=== PATIENT | female | born 1925 ===

== ENCOUNTER 2016-07-16 10:06 | Inpatient (IN) | payer MEDICARE ==
--- NOTE | 2016-07-16 11:15 | ED PDOC ---
HPI: General Adult Time Seen by Provider: 07/16/16 10:28 Chief Complaint (Nursing): Trauma Chief Complaint (Provider): mechanical fall History Per: Patient History/Exam Limitations: no limitations Additional Complaint(s): 89yo female comes to the ED complaining of left knee, forehead and right shoulder pain after mechanical fall earlier today. States she walked down 2 steps when she fell, landing on the left knee, forehead and left shoulder, then rolling to the right side. Complaining of a headache where she has bruise but denies any other change in vision, pain with eye movement, jaw pain, neck pain, chest pain, abdominal pain, hip pain, back pain. Also complains of left knee pain with range of motion. NIHSS Stroke Scale - Date/Time Evaluation Performed Date Performed: 07/16/16 Time Performed: 10:30 - How Severe is the Stroke Level of Consciousness: 0=Alert LOC to Questions: 0=Both comments correct LOC to commands: 0=Obeys both correctly Best Gaze: 0=Normal Visual: 0=No visual loss Facial: 0=Normal Motor Arm - Left: 0=No drift Motor Arm - Right: 0=No drift Motor Leg - Left: 0=No drift Motor Leg - Right: 0=No drift Limb Ataxia: 0=Absent Sensory: 0=Normal Best Language: 0=No aphasia Dysarthia: 0=Normal articulation Extinction & Inattention (Neglect): 0=Normal, no object Score: 0 Past Medical History Reviewed: Historical Data, Nursing Documentation, Vital Signs Vital Signs: Last Vital Signs Temp 98.6 F 07/16/16 10:30 Pulse 78 07/16/16 15:27 Resp 16 07/16/16 15:27 BP 116/68 07/16/16 15:27 Pulse Ox 98 07/16/16 15:27 - Medical History PMH: HTN, Hypercholesterolemia Other PMH: elevated blood sugar but not taking meds - Surgical History Surgical History: No Surg Hx - Family History Family History: States: Unknown Family Hx - Social History Drugs: Denies - Home Medications Home Medications: Ambulatory Orders Medication Instructions Recorded Carvedilol [Coreg] 12.5 mg PO DAILY 07/16/16 Levothyroxine [Synthroid] 75 mcg PO DAILY 07/16/16 Raloxifene [Evista] 60 mg PO DAILY 07/16/16 Simvastatin [Simvastatin] 10 mg PO HS 07/16/16 amLODIPine [Norvasc] 5 mg PO DAILY 07/16/16 cycloSPORINE [Restasis] 1 drop EACHEYE Q12H 07/16/16 metFORMIN [glucOPHAGE] 500 mg PO DAILY 07/16/16 - Allergies Allergies/Adverse Reactions: Allergies Allergy/AdvReac Type Severity Reaction Status Date / Time No Known Allergies Allergy Verified 07/16/16 10:30 Review of Systems ROS Statement: Except As Marked, All Systems Reviewed And Found Negative Musculoskeletal: Positive for: Shoulder Pain, Other (knee pain). Negative for: Neck Pain, Back Pain Neurological: Positive for: Headache Physical Exam - Reviewed Nursing Documentation Reviewed: Yes Vital Signs Reviewed: Yes - Physical Exam Appears: Positive for: Well, Non-toxic, No Acute Distress Head Exam: Positive for: NORMAL INSPECTION, NORMOCEPHALIC. Negative for: ATRAUMATIC (+hematoma to right forehead) Skin: Positive for: Normal Color, Warm, Dry Eye Exam: Positive for: EOMI, PERRL ENT: Positive for: Normal ENT Inspection Neck: Positive for: Normal, Painless ROM Cardiovascular/Chest: Positive for: Regular Rate, Rhythm Respiratory: Positive for: Normal Breath Sounds. Negative for: Rales, Rhonchi, Wheezing Pulses-Dorsalis Pedis (L): 2+ Pulses-Dorsalis Pedis (R): 2+ Pulses-Radial (L): 2+ Pulses-Radial (R): 2+ Gastrointestinal/Abdominal: Positive for: Soft. Negative for: Tenderness Back: Positive for: Normal Inspection. Negative for: Vertebral Tenderness Extremity: Positive for: Normal ROM (except for left knee and right shoulder ), Tenderness (right shoulder, left knee ), Capillary Refill (normal ), Swelling ( left knee, right forearm), Other (hematoma to left knee with moderate swelling to anterior portion with decreased ROM due to swelling. sensation intact. capillary refill normal. +lateral right shoulder but no obvious deformity. 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 Negative for: Motor/Sensory Deficits, Aphasia, Facial Droop - Laboratory Results Result Diagrams: 07/16/16 13:30 07/16/16 13:30 - ECG O2 Sat by Pulse Oximetry: 99 (RA) Pulse Ox Interpretation: Normal Medical Decision Making Medical Decision Making: Impression rule out fracture plan: -ct head w/o -xr left knee & right shoulder -tylenol -reassess 1311: CT Head w/o Impression: Approximately 1.6cm intraparenchymal hemorrhage or hemorrhagic lesion/mass at the inferior aspect of the right thalamus without evidence of significant mass effect or midline shift. Moderate atrophy. [address] Guardado neurosurgery who states patient does not need to be transferred. Recommends admitting the patient and requests neurology consult. Patient reassessed, now has a hematoma on the right lateral forearm. No obvious deformity. XR Left Knee significant for fractured patella. XR Right shoulder is negative. [address] Redding neurology, who suspects patient may have had a seizure which caused her to fall. Requests Keppra 500mg BID. Requests MRI with gadolinium. [address] Roldan who accepts patient for admission under medical service. Will put in for Q4 neuro checks. MRI was ordered. Keppra was ordered. RN will call him when patient gets to the floor. Dr. Bird will consult as orthopedist. Case discussed with Dr. Bird, in at bedside. he placed compression dressing on leg, knee immobilizer replaced requests MRI right shoulder, elbow right x ray, and knee CT. he discussed with patient and son at beside will need operation once stable. Disposition - Clinical Impression Clinical Impression: Intraparenchymal hemorrhage of brain, Shoulder pain, Patella fracture - Patient ED Disposition Is Patient to be Admitted: Yes Counseled Patient/Family Regarding: Studies Performed, Diagnosis - Disposition Disposition Time: 15:57 Condition: STABLE - Pt Status Changed To: Hospital Disposition Of: Inpatient - Admit Certification Admit to Inpatient:: After my assessment, the patient will require hospitalization for at least two midnights. This is because of the severity of symptoms shown, intensity of services needed, and/or the medical risk in this patient being treated as an outpatient. - POA Present On Arrival: None Additional Comments - Additional Comments Additional Comments: Scribe Attestation: Documented by Anil Garay acting as a scribe for Lanre Medel PA-C Provider Scribe Attestation: All medical record entries made by the Scribe were at my direction and personally dictated by me. I have reviewed the chart and agree that the record accurately reflects my personal performance of the history, physical exam, medical decision making, and the department course for this patient. I have also personally directed, reviewed, and agree with the discharge instructions and disposition.
--- NOTE | 2016-07-16 12:26 | CT ---
PROCEDURE: CT HEAD WITHOUT CONTRAST. HISTORY: fall, pain, right COMPARISON: None available. TECHNIQUE: Axial computed tomography images were obtained through the head/brain without intravenous contrast. Radiation dose: Total exam DLP = 769.5 mGy-cm. FINDINGS: HEMORRHAGE: There is focal round approximately 1.6 centimeter intraparenchymal hemorrhage versus hemorrhagic lesion at the inferior aspect of the right thalamus surrounding with trace edema. BRAIN: No evidence of significant mass effect or midline shift. Moderate atrophy. VENTRICLES: Unremarkable. No hydrocephalus. CALVARIUM: Unremarkable. PARANASAL SINUSES: Unremarkable as visualized. No significant inflammatory changes. MASTOID AIR CELLS: Unremarkable as visualized. No inflammatory changes. OTHER FINDINGS: None. IMPRESSION: Approximately 1.6 centimeter intraparenchymal hemorrhage or hemorrhagic lesion/mass at the inferior aspect of the right thalamus without evidence of significant mass effect or midline shift. Moderate atrophy. Right frontal scalp soft tissue swelling.
[2016-07-16 13:47] LABS: BASO % 0.3 % (0.0-2.0); EOS # 0.1 K/uL (0.0-0.7); EOS % 0.5 % (0.0-4.0); HEMATOCRIT 38.7 % (34.0-47.0); LYMPH # 2.5 K/uL (1.0-4.3); LYMPH % 24.2 % (20.0-40.0); MEAN CORPUSCULAR HEMOGLOBIN 28.8 pg (27.0-31.0); MEAN CORPUSCULAR HGB CONC 33.1 g/dL (33.0-37.0); MEAN PLATELET VOLUME 9.4 fl (7.2-11.7); MONO # 0.5 K/uL (0.0-0.8); MONO % 4.7 % (0.0-10.0); NEUT # 7.2 K/uL (1.8-7.0); NEUT % 70.3 % (50.0-75.0); NRBC % 0.1 % (0.0-0.0); RED CELL DISTRIBUTION WIDTH 14.1 % (11.5-14.5); WHITE BLOOD COUNT 10.3 K/uL (4.8-10.8)
--- NOTE | 2016-07-16 13:56 | RAD ---
PROCEDURE: Left Knee Radiographs. HISTORY: Pain. COMPARISON: None. FINDINGS: BONES: Transverse markedly displaced mid patellar fracture. There is roughly 2.3 cm displacement of the fracture fragments. The patellar fracture is likely comminuted, best seen on the sunrise view. There is no other fracture identified. JOINTS: Medial and lateral compartments are preserved. JOINT EFFUSION: None. OTHER FINDINGS: None. IMPRESSION: Displaced patellar fracture, likely comminuted.
--- NOTE | 2016-07-16 13:58 | RAD ---
PROCEDURE: Radiographs of the Right Shoulder HISTORY: fall, pain COMPARISON: No prior. FINDINGS: BONES: Normal. No fracture. JOINTS: No dislocation. Glenohumeral articulation grossly preserved. Acromioclavicular degenerative arthritis noted. SOFT TISSUES: Normal. OTHER FINDINGS: None. IMPRESSION: No acute fracture.
[2016-07-16 14:01] LABS: ALB/GLOB RATIO 1.2 (1.0-2.1); ALKALINE PHOSPHATASE 52 U/L (38-126); ALT/SGPT 32 U/L (9-52); AST/SGOT 54 U/L (14-36); BLOOD UREA NITROGEN 14 mg/dl (7-17); CALCIUM 9.4 mg/dL (8.4-10.2); CARBON DIOXIDE 25 mmol/L (22-30); CHLORIDE 103 mmol/L (98-107); GFR AFRICAN-AMERICAN > 60; GLUCOSE,RANDOM 126 mg/dL (65-105); PARTIAL THROMBOPLASTIN TIME 22.1 SECONDS (23.3-32.5); POTASSIUM 4.3 MMOL/L (3.6-5.0); SODIUM 137 mmol/l (132-148); TOTAL PROTEIN 7.5 G/DL (6.3-8.2)
--- NOTE | 2016-07-16 15:56 | CT ---
PROCEDURE: CT of the left knee without contrast HISTORY: fall, pain COMPARISON: Comparison is made to the previous same-day x-ray of the left knee TECHNIQUE: Axial and reformatted coronal and sagittal CT images of the left knee were obtained without IV contrast administration. 3D reconstructed/ reformatted images of the left knee were also obtained. FINDINGS: This study demonstrate acute comminuted and displaced fracture at the mid portion of the left patella with retraction of the proximal portion. . There are also comminuted nondisplaced fracture at the distal portion of the left patella laterally. There are small bony fragments seen. No evidence of other acute fracture at the left knee. Posttraumatic changes and subcutaneous edema and stranding seen at the anterior aspect of the left knee particularly around the left patella. There is a trace left knee joint effusion. The Herbert fat is clear. IMPRESSION: Acute comminuted and displaced fracture at the midshaft of the left patella with retraction of the proximal portion attached to the quadriceps tendon. Comminuted nondisplaced fractures at the distal portion of the left patella. Post traumatic soft tissue edema and swelling seen at the anterior aspect of the left knee. No evidence of significant joint effusion.
--- NOTE | 2016-07-16 16:29 | CP.PCM.CON ---
History of Present Illness - History of Present Illness History of Present Illness: ID:89 yo female CC: Multiple trauma: sevre pain and restricted ROM L Knee/ pain andrstricted ROM R shoulder lacertaion lateral aspect elbow =LOC, with parenchymal damage to thalamus Past Patient History - Past Social History Drugs: Denies - CARDIAC Hx Hypercholesterolemia: Yes Hx Hypertension: Yes - PULMONARY Hx Respiratory Disorders: No - NEUROLOGICAL Hx Neurological Disorder: No - HEENT Hx HEENT Problems: No - RENAL Hx Chronic Kidney Disease: No - ENDOCRINE/METABOLIC Hx Endocrine Disorders: No - HEMATOLOGICAL/ONCOLOGICAL Hx Blood Disorders: No - INTEGUMENTARY Hx Dermatological Problems: No - MUSCULOSKELETAL/RHEUMATOLOGICAL Hx Musculoskeletal Disorders: No - GASTROINTESTINAL Hx Gastrointestinal Disorders: No - GENITOURINARY/GYNECOLOGICAL Hx Genitourinary Disorders: No - PSYCHIATRIC Hx Psychophysiologic Disorder: No Hx Substance Use: No - SURGICAL HISTORY Hx Surgeries: No Meds Allergies/Adverse Reactions: Allergies Allergy/AdvReac Type Severity Reaction Status Date / Time No Known Allergies Allergy Verified 07/16/16 10:30 Physical Exam - Additional Findings Additional findings: EXam: systemic- HEEN- + raconn sign R orbuit Neurologic- + LOC pt with MRI evdience for parenchymal bleed thalamus remaidner systemic exam grossly wnl pleasae refer to Dr Alfaro admitting note Musculoskeltal stanxce/ gate- defrred pt with her simonon Won present at time of O/E Musculoskeltal stance/gait- defrred pt with + effusion /hemarthrosis L knee + ecchymosis ROM - R shoulder restricted ROM- + drop arm sign + tenderness AQ/C joint + laceration R elbow ROM R elbow resticted Results - Vital Signs Recent Vital Signs: Last Vital Signs Temp 98.6 F 07/16/16 10:30 Pulse 78 07/16/16 15:27 Resp 16 07/16/16 15:27 BP 116/68 07/16/16 15:27 Pulse Ox 99 07/16/16 15:59 - Labs Result Diagrams: 07/16/16 13:30 07/16/16 13:30 - Impressions Impression: Imaging Planar Xrays R shoulder- reveal gr 2 A.C seopartion with sclerosi at greater tuberosity A/P lateral views L knee - reveal displaced comminuted patella fx Xrays elbow pending MRIU brain- results noted; awiaiting nweuro consult Assessment & Plan - Assessment and Plan (Free Text) Assessment: A- Multiple trauma 1) parenchymal bleed in brain 2) DISPOLACED/COMMINUTED l PATELLA FX 3) rOTATOR4) LACERATION r ELBOW r/o FX xRAYS PENDING4) CUff TEAR r SHOULDER/ a /c JOINT SEPARATION GR 2 WITH ARTHRITIC CHANGE 4)LACERATION r EL;BOPW; RO FX p- MEDICLA/NEUROLOGIC STABILIZATION tO or FOR orif l PATELLA WHEN PT NEUROLOGICALLY STABLE
[2016-07-16] MEDS ORDERED: Gadodiamide 287 MG/ML VIAL (15ML) IV ONE (16:39)
--- NOTE | 2016-07-16 18:51 | MRI ---
PROCEDURE: MRI BRAIN WITH AND WITHOUT CONTRAST HISTORY: intraparenchymal hemorrhage or hemorrhagic lesion/ COMPARISON: None. TECHNIQUE: Multiplanar, multisequence MR images of the brain were obtained with and without intravenous contrast enhancement. FINDINGS: HEMORRHAGE: Focal of mild increased T1 signal is noted at the inferior aspect of the right thalamus corresponding to the high attenuation lesions seen in the previous CT. DWI: Small foci of diffusion restriction seen at the site of the high T1 signal lesion in the inferior medial aspect of the right temporal lobe inferior to the right thalamus BRAIN PARENCHYMA: Mild edema surrounding the lesion described above. Mild mass effect on the adjacent right lateral ventricle. No atrophy or chronic microvascular ischemic changes. ENHANCEMENT: No abnormal intracranial enhancement. VENTRICLES: Unremarkable. No hydrocephalus. CRANIUM: Unremarkable. ORBITS: Grossly unremarkable. PARANASAL SINUSES/MASTOIDS: Clear VASCULAR SYSTEM: Skull base flow voids intact. OTHER FINDINGS: None . IMPRESSION: Focal hyperintense FLAIR signal and slightly hyperintense T1 signal at the medial inferior aspect of the right temporal lobe right basal ganglia/ thalamus corresponding to the high attenuation lesion seen in the previous CT. No evidence of enhancement . Foci of diffusion restriction seen in and adjacent to the lesion. Mild surrounding edema. Findings suspicious for hemorrhagic infarct. The possibility of mass lesion is less likely. Follow-up CT or MRI in 1-2 weeks is suggested. Otherwise no evidence of acute pathology in the brain.
--- NOTE | 2016-07-16 21:14 | CON ---
DATE: 07/16/2016 REASON FOR CONSULTATION: Abnormal CAT scan finding. CHIEF COMPLAINT: The patient was brought in to [facility] following a fall an d injured her knee and right shoulder with Butts head. From neurological point of view, I was kerry led in to evaluate her because of her abnormal CAT scan suggestive of intracerebral bleed. HISTORY OF PRESENT ILLNESS: The patient is an 89-year-old, right-handed female. From the history, s he missed a step and fell on her left knee and hurt her shoulder and right side of the forehead. The re is no clear history of loss of consciousness, no history of seizures at the scene, no history of b owel or bladder incontinence at the scene. No similar episodes in the past. She is pretty healthy f or her age. 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 Her last visit was 2 months ago. PAST MEDICAL HISTORY: High blood pressure and diabetes mellitus. PERSONAL HISTORY: No smoking, no alcohol use. ALLERGIES: No known allergies. REVIEW OF SYSTEMS: As per H and P. PHYSICAL EXAMINATION: VITAL SIGNS: Blood pressure 127/81, mean arterial pressure of 96, respiratory rate 16, temperature afebrile. NECK: Supple. No carotid bruit. HEART: Sounds regular. CHEST: Fair air entry. EXTREMITIES: No edema in legs. Her right frontal region ecchymosis is noted and right shoulder, due to the fall, had restricted rang e of motion and the left knee is in a splint with immobilization. NEUROLOGIC EXAMINATION: MENTAL STATUS EXAMINATION: She is communicable only in [place]o. She is awake, alert, oriented to pe rson, place, and time. Speech is clear. Naming, repetition, fluency, comprehension all within nehal l. CRANIAL NERVE EXAMINATION: Visual field intact, pupil reactive to light. Extraocular movements are normal. No nystagmus, no facial sensory deficit, no facial asymmetry. Hearing is normal. Tongue is midline. Good gag. MOTOR: Pain limited exam on the right side. Left leg is externally rotated. She was able to move h er left arm, no drift noted. Power is symmetric on either side on the left upper extremity and right lower extremity. DEEP TENDON REFLEXES: Absent throughout. Plantars are upgoing on the left side, right side was down going. SENSORY EXAMINATION: Significant distal sensory motor neuropathy noted. CONCLUSION: Upon reviewing her history and neurological examination, The patient presented with righ t subcortical dysfunction manifesting with left hemiparesis, suggestive of intracranial pathology, it could be a tumor versus bleed, or ischemic process. WORKUP: The CT of the head revealed a right thalamic hemorrhage noted. MRI of the brain also reviewed shows hyperintense flair as well as hyperintensity on signal at the ri ght temporal lobe and right basal ganglia and thalamus, corresponding to his CT finding suggestive of a hemorrhagic infarct. BLOOD WORKUP: WBC 10.3, hemoglobin 12.8, hematocrit 38.7, platelet 211. PT 10.9, INR 1.05, PTT 22.1 . Sodium 137, potassium 4.3, chloride 103, bicarbonate 25, BUN 14, GFR more than 60, glucose 126, ca lcium 9.4. RECOMMENDATIONS: 1. No antiplatelets for the next 4-6 weeks. 2. Check a carotid Doppler. 3. Maintain the blood pressure around less than 140 over less than 85. 4. I agree with Janene because of the funny location of the hemorrhagic infarct over the temporal lob e, could be a potential cause of what could be seizure. 5. The patient should get out of bed and physical therapy should be started. 6. For the left knee, orthopedic evaluation is recommended. 7. The patient should have echocardiogram and should have a cardiology consultation as well. Kenton Redding MD cc: [id number] TT: 07/16/2016 21:13:59 Confirmation # [id number] Dictation # [id number]
[2016-07-16 21:42] LABS: THYROID STIMULATING HORMONE 1.59 mIU/ML (0.46-4.68)
[2016-07-16] MEDS: Pravastatin Sodium 20 MG TAB PO SCH (22:26)
--- NOTE | 2016-07-16 23:08 | CP.PCM.PN ---
Objective - Vital Signs/Intake and Output Vital Signs (last 24 hours): Temp Pulse Resp BP Pulse Ox 98.7 F 88 18 135/70 96 07/16/16 19:00 07/16/16 19:00 07/16/16 19:00 07/16/16 19:00 07/16/16 19:00 - Medications Medications: Current Medications Acetaminophen (Tylenol 325mg Tab) 650 mg PO Q4 PRN PRN Reason: Pain, Mild (1-3) Amlodipine Besylate (Norvasc) 5 mg PO DAILY [facility] Carvedilol (Coreg) 12.5 mg PO DAILY [facility] Home Med (Cyclosporine [Restasis]) 1 drop EACHEYE Q12H [facility] Levothyroxine Sodium (Synthroid) 75 mcg PO DAILY@0630 [facility] Pravastatin Sodium (Pravachol) 20 mg PO HS [facility] Last Admin: 07/16/16 22:26 Dose: 20 mg - Labs Labs: PT 10.9 SECONDS (9.6-11.2) 07/16/16 13:30 INR 1.05 (0.92-1.08) 07/16/16 13:30 APTT 22.1 SECONDS (23.3-32.5) L 07/16/16 13:30
--- NOTE | 2016-07-16 23:09 | CP.PCM.HP ---
History of Present Illness - History of Present Illness History of Present Illness: Patient was walking out from home,She had to step down 3 steps, the 2nd step had a missing part ,She fell down sustained a Head, R shoulder , L knee contusion . EMS were called , She was brought to ER [facility] , CT Head , MRI Brain Right thalamic hemorrhge , X Ray L knee L patellar Fx Denies LOC ,Dizziness ,N/V , Seizure , confusion. No previous Hx of CVA,Seizure Present on Admission - Present on Admission Any Indicators Present on Admission: No Review of Systems - Constitutional Constitutional: Other (neg) - EENT Eyes: Other (neg) Ears: Other (neg) Nose/Mouth/Throat: Other (neg) - Cardiovascular Cardiovascular: Other (neg) - Respiratory Respiratory: Other (neg) - Gastrointestinal Gastrointestinal: Other (neg) - Genitourinary Genitourinary: Other (neg) - Musculoskeletal Musculoskeletal: Other (neg) - Neurological Neurological: Other (neg) - Psychiatric Psychiatric: Other (neg) - Endocrine Endocrine: Other (nreg) - Hematologic/Lymphatic Hematologic: Other (neg) Past Patient History - Past Social History Smoking Status: Never Smoked Alcohol: None Drugs: Denies - CARDIAC Hx Cardiac Disorders: Yes Hx Hypertension: Yes - PULMONARY Hx Respiratory Disorders: No - NEUROLOGICAL Hx Neurological Disorder: No - HEENT Hx HEENT Problems: No - RENAL Hx Chronic Kidney Disease: No - ENDOCRINE/METABOLIC Hx Endocrine Disorders: Yes (not on meds.) Hx Diabetes Mellitus Type 2: Yes - HEMATOLOGICAL/ONCOLOGICAL Hx Blood Disorders: No - INTEGUMENTARY Hx Dermatological Problems: No - MUSCULOSKELETAL/RHEUMATOLOGICAL Hx Musculoskeletal Disorders: No - GASTROINTESTINAL Hx Gastrointestinal Disorders: No - GENITOURINARY/GYNECOLOGICAL Hx Genitourinary Disorders: No - PSYCHIATRIC Hx Psychophysiologic Disorder: No - SURGICAL HISTORY Hx Surgeries: No Meds Allergies/Adverse Reactions: Allergies Allergy/AdvReac Type Severity Reaction Status Date / Time No Known Allergies Allergy Verified 07/16/16 10:30 Physical Exam - Constitutional Appears: No Acute Distress - Head Exam Additional comments: R forehead ecchymosis - Eye Exam Eye Exam: EOMI, PERRL - ENT Exam ENT Exam: Normal Oropharynx - Neck Exam Neck exam: Positive for: Normal Inspection - Respiratory Exam Respiratory Exam: NORMAL BREATHING PATTERN - Cardiovascular Exam Cardiovascular Exam: REGULAR RHYTHM - GI/Abdominal Exam GI & Abdominal Exam: Normal Bowel Sounds, Soft - Extremities Exam Extremities exam: Positive for: tenderness Additional comments: tenderness R shoulder, ROM decreased L knee tenderness , inmobilizer LLE , laceration R elbow, tenderness , ROM decreased - Back Exam Back exam: NORMAL INSPECTION - Neurological Exam Neurological exam: Alert, Oriented x3 Additional comments: mild L hemiparesia - Psychiatric Exam Psychiatric exam: Normal Affect, Normal Mood - Skin Skin Exam: Warm Results - Vital Signs Recent Vital Signs: Last Vital Signs Temp 98.7 F 07/16/16 19:00 Pulse 88 07/16/16 19:00 Resp 18 07/16/16 19:00 BP 135/70 07/16/16 19:00 Pulse Ox 96 07/16/16 19:00 - Labs Result Diagrams: 07/16/16 13:30 07/16/16 13:30 Labs: Laboratory Results - last 24 hr 07/16/16 07/16/16 20:30 22:06 ESR 37 H POC Glucose (mg/dL) 185 H Vitamin B12 189 L TSH 3rd Generation 1.59 Blood Type Confirm A POSITIVE Assessment & Plan (1) Intraparenchymal hemorrhage of brain Status: Acute (2) Patella fracture Status: Acute (3) Shoulder pain Status: Acute (4) Laceration of right elbow Status: Acute (5) HTN (hypertension) Status: Acute (6) High cholesterol Status: Chronic Priority: Medium (7) Hypothyroidism Status: Chronic (8) Diabetes mellitus Status: Chronic Priority: Medium - Assessment and Plan (Free Text) Plan: Neuro, Ortho consult appreciated , HTN and BS control
[2016-07-17] MEDS: Levothyroxine 75 MCG TAB PO SCH (06:30)
[2016-07-17 06:31] LABS: HOMOCYSTEINE 17.6 umol/L (<10.4)
[2016-07-17 08:04] LABS: HEMATOCRIT 34.4 % (34.0-47.0); MEAN CELL VOLUME 85.9 fl (81.0-99.0); MEAN CORPUSCULAR HEMOGLOBIN 29.2 pg (27.0-31.0); RED CELL DISTRIBUTION WIDTH 13.4 % (11.5-14.5)
[2016-07-17 08:26] LABS: ALB/GLOB RATIO 1.2 (1.0-2.1); ALKALINE PHOSPHATASE 47 U/L (38-126); ALT/SGPT 32 U/L (9-52); AST/SGOT 40 U/L (14-36); BILIRUBIN,TOTAL 1.5 mg/dl (0.2-1.3); BLOOD UREA NITROGEN 12 mg/dl (7-17); CALCIUM 9.1 mg/dL (8.4-10.2); CARBON DIOXIDE 25 mmol/L (22-30); CHLORIDE 100 mmol/L (98-107); CHOLESTEROL 123 mg/dL (0-199); GFR AFRICAN-AMERICAN > 60; GLUCOSE,RANDOM 139 mg/dL (65-105); SODIUM 132 mmol/l (132-148); TOTAL PROTEIN 7.2 G/DL (6.3-8.2)
[2016-07-17 08:27] LABS: PARTIAL THROMBOPLASTIN TIME 26.3 SECONDS (23.3-32.5)
[2016-07-17 08:36] LABS: T4 11.7 ug/dl (5.5-11.0)
[2016-07-17 08:49] LABS: THYROID STIMULATING HORMONE 2.27 mIU/ML (0.46-4.68)
--- NOTE | 2016-07-17 08:52 | RAD ---
PROCEDURE: Radiographs of the right elbow. HISTORY: fall pain COMPARISON: No prior. FINDINGS: BONES: No evidence of acute fracture. JOINTS: Moderate osteoarthritic changes. No evidence of dislocation. SOFT TISSUES: Normal. JOINT EFFUSION: None. OTHER FINDINGS: None. IMPRESSION: No evidence of acute fracture or dislocation. [id number] osteoarthritis.
--- NOTE | 2016-07-17 09:36 | MRI ---
MRI right shoulder History: Pain and fall. Comparison: X-ray dated 07/16/2016 Technique: Multi-echo multiplanar sequences were performed through the right shoulder without the use of intravenous contrast. Findings: Complete full-thickness tear of the distal supraspinatus tendon with tendon retraction to the acromioclavicular joint space. Large partial/near complete full thickness tear of the distal infraspinatus tendon with a few of the inferior tendon strand fibers intact. Interstitial delamination to the myotendinous junction. Mild fatty atrophy of the muscle belly. Teres minor tendon is preserved. Moderate distal subscapularis tendinopathy with articular surface fraying. Proximal portion of the long head of the biceps tendon demonstrates a moderate tendinopathy proximally. Evaluation of the glenoid labrum demonstrates degenerative fraying and partial tearing of the anterior and a portion the superior glenoid labrum. Small glenohumeral joint effusion. Subchondral cyst formation and or intraosseous ganglion formation seen within proximal humerus laterally measuring 7 centimeters and anteriorly measuring up to 1.2 centimeters. Small amount of fluid within the subacromion subdeltoid bursa as well as the subcoracoid bursa. Moderate acromioclavicular joint space degenerative changes with joint space narrowing, subchondral edema, and bony hypertrophy. Low signal lobulated foci seen at the lateral aspect of the deltoid muscle which may represent some heterotopic calcification as demonstrated on the x-ray. Impression: Limited study secondary to prominent patient motion artifact. 1. Complete full-thickness tear of the distal supraspinatus tendon with tendon retraction to the acromioclavicular joint space. 2. Large partial/near complete full thickness tear of the distal infraspinatus tendon with a few of the inferior tendon strand fibers intact. Interstitial delamination to the myotendinous junction. Mild fatty atrophy of the muscle belly. 3. Moderate distal subscapularis tendinopathy with articular surface fraying. 4. Proximal portion of the long head of the biceps tendon demonstrates a moderate tendinopathy proximally. 5. Evaluation of the glenoid labrum demonstrates degenerative fraying and partial tearing of the anterior and a portion the superior glenoid labrum. 6. Small glenohumeral joint effusion. 7. Subchondral cyst formation and or intraosseous ganglion formation seen within proximal humerus laterally measuring 7 centimeters and anteriorly measuring up to 1.2 centimeters. 8. Small amount of fluid within the subacromion subdeltoid bursa as well as the subcoracoid bursa. 9. Moderate acromioclavicular joint space degenerative changes with joint space narrowing, subchondral edema, and bony hypertrophy. 10. Low signal lobulated foci seen at the lateral aspect of the deltoid muscle which may represent some heterotopic calcification as demonstrated on the x-ray.
--- NOTE | 2016-07-17 12:02 | RAD ---
HISTORY: MD order COMPARISON: No prior. FINDINGS: LUNGS: Minimal hazy opacity in the lung bases. Possible bronchiectasis in the upper lobes. PLEURA: No significant pleural effusion identified, no pneumothorax apparent.Biapical pleural parenchymal thickening noted. CARDIOVASCULAR: Normal. OSSEOUS STRUCTURES: The osseous structures demonstrate degenerative changes. VISUALIZED UPPER ABDOMEN: Upper abdomen is suboptimally evaluated. OTHER FINDINGS: None. IMPRESSION: Minimal hazy opacities in the lung bases. Possible bronchiectasis in the upper lobes.
[2016-07-17 13:15] LABS: RBC URINE 10 /hpf (0-3); URINE BILIRUBIN NEGATIVE (NEGATIVE); URINE BLOOD NEGATIVE (NEGATIVE); URINE COLOR YELLOW (YELLOW); URINE GLUCOSE (UA) NEG (Normal); URINE KETONE 20 mg/dL (NEGATIVE); URINE LEUKOCYTE ESTERASE NEG Leu/uL (Negative); URINE PROTEIN 30 mg/dL (NEGATIVE); URINE UROBILINOGEN 0.2-1.0 mg/dL (0.2-1.0); WBC URINE 1 /hpf (0-5)
[2016-07-17 16:25] LABS: FOLATE > 20.0 ng/mL
[2016-07-17] MEDS: Pravastatin Sodium 20 MG TAB PO SCH (21:35)
[2016-07-18] MEDS: Levothyroxine 75 MCG TAB PO SCH (06:38)
--- NOTE | 2016-07-18 11:21 | CON ---
DATE: 07/16/2016 I was contacted by the ER about this 89-year-old lady that fell down a couple of steps and struck her head. She has a small scalp laceration. The patient came in neurologically intact, underwent a CT of the brain which shows a 1.5 cm spherical hematoma in the thalamus. There is no mass effect. Ther e was no intraventricular extension. IMPRESSION AND PLAN: The patient has a history of hypertension, and this is far more consistent with a hypertensive hemorrhage than traumatic. In fact, this is completely atypical for any type of traum atic intracranial hemorrhage. The outside possibility is an underlying lesion such as a metastasis. My recommendation would be blood pressure control. Apparently, she also has a patella fracture. She may be admitted for these reasons. I would just simply repeat the scan in 6 hours to ensure there i s no change in this hemorrhage, which is very doubtful, and my overall recommendation would be to hav e an MRI done, not acutely. Any underlying lesion will be masked by the hematoma, but to perform it in approximately 6 weeks' time. Viktor Guardado MD cc: [id number] TT: 07/16/2016 17:49:00 Confirmation # [id number] Dictation # [id number] joseph
--- NOTE | 2016-07-18 12:23 | CP.PCM.PCO ---
Assessment/Plan - Assessment/Plan Plan (Free Text): Patient on the OR schedule tentatively for 07/19 for ORIF L patella, discussed with Dr Redding, pt neurologically cleared for OR. - Problems Patient Problems: Problem List (Active/Current) Problem Status Priority Diagnosed Code HTN (hypertension) Acute I10 Intraparenchymal hemorrhage of brain Acute I61.9 Laceration of right elbow Acute S51.011A Patella fracture Acute S82.009A Shoulder pain Acute M25.519 Diabetes mellitus Chronic Medium E11.9 High cholesterol Chronic Medium E78.00 Hypothyroidism Chronic E03.9
--- NOTE | 2016-07-18 13:02 | CP.PCM.PN ---
Subjective - Date & Time of Evaluation Date of Evaluation: 07/18/16 - Subjective Subjective: F/U Intraparenchymal hemorrhage of brain. Pt has less pain in the L knee, also less pain in R shoulder. Objective - Vital Signs/Intake and Output Vital Signs (last 24 hours): Temp Pulse Resp BP Pulse Ox 97 F L 74 18 123/69 96 07/18/16 12:00 07/18/16 12:00 07/18/16 12:00 07/18/16 12:00 07/18/16 12:00 - Medications Medications: Current Medications Acetaminophen (Tylenol 325mg Tab) 650 mg PO Q4 PRN PRN Reason: Pain, Mild (1-3) Last Admin: 07/17/16 06:30 Dose: 650 mg Amlodipine Besylate (Norvasc) 5 mg PO DAILY [facility] Last Admin: 07/18/16 10:59 Dose: 5 mg Carvedilol (Coreg) 12.5 mg PO DAILY [facility] Last Admin: 07/18/16 08:56 Dose: 12.5 mg Home Med (Cyclosporine [Restasis]) 1 drop EACHEYE Q12H [facility] Hydromorphone HCl (Dilaudid) 1 mg IVP Q4H PRN PRN Reason: Pain, moderate (4-7) Last Admin: 07/18/16 09:34 Dose: 1 mg Levetiracetam (Keppra) 500 mg PO BID [facility] Last Admin: 07/18/16 08:57 Dose: 500 mg Levothyroxine Sodium (Synthroid) 75 mcg PO DAILY@0630 [facility] Last Admin: 07/18/16 06:38 Dose: 75 mcg Pravastatin Sodium (Pravachol) 20 mg PO HS [facility] Last Admin: 07/17/16 21:35 Dose: 20 mg - Labs Labs: 07/17/16 06:45 07/17/16 06:45 PT 11.4 SECONDS (9.6-11.2) H 07/17/16 06:45 INR 1.10 (0.92-1.08) H 07/17/16 06:45 APTT 26.3 SECONDS (23.3-32.5) 07/17/16 06:45 - Constitutional Appears: No Acute Distress - Head Exam Additional comments: R Forehead ecchymosis - Eye Exam Eye Exam: EOMI, PERRL - ENT Exam ENT Exam: Normal Oropharynx - Neck Exam Neck Exam: Normal Inspection - Respiratory Exam Respiratory Exam: NORMAL BREATHING PATTERN - Cardiovascular Exam Cardiovascular Exam: REGULAR RHYTHM - GI/Abdominal Exam GI & Abdominal Exam: Soft, Normal Bowel Sounds - Extremities Exam Extremities Exam: Tenderness (R shoulder, ROM decreased L knee tenderness. Inmobilazer LLE, laceration R elbow with tenderness, ROM decreased) - Back Exam Back Exam: NORMAL INSPECTION - Neurological Exam Neurological Exam: Alert, Oriented x3 Additional comments: Mild left hemiparesia. - Psychiatric Exam Psychiatric exam: Normal Affect, Normal Mood - Skin Skin Exam: Warm Assessment and Plan (1) Intraparenchymal hemorrhage of brain Status: Acute (2) Patella fracture Status: Acute (3) Shoulder pain Status: Acute (4) Laceration of right elbow Status: Acute (5) HTN (hypertension) Status: Acute (6) High cholesterol Status: Chronic (7) Hypothyroidism Status: Chronic (8) Diabetes mellitus Status: Chronic - Assessment and Plan (Free Text) Plan: MRI of the Brain shows probably Thalamus Brain hemorrhage, Pt was Cleared by Neurology for operation of the Patella. I will contact Dr Bird to see if can defer surgery, continue current Tx. Cardiology consult.
--- NOTE | 2016-07-18 15:03 | EEG ---
DATE: 07/16/2016 This is a 16-channel electroencephalogram of awake and drowsy adult. During the study, photic stimul ation was performed. Hyperventilation was not performed. The resting electroencephalogram consists of diffuse 30-40 microvolts, 6-7 Hz theta activity seen at parietal and occipital leads. Movement artifact contaminated the background rhythm as well as eye mo vement artifact also contaminated the background rhythm. This high theta activity is continuously no jarocho from the beginning. The photic stimulation did not evoke driving response noted at 2-20 Hz. IMPRESSION: This is a mildly abnormal electroencephalogram because of persistent slowing throughout the record suggestive of bilateral cerebral dysfunction. This is probably secondary to metabolic vas cular or degenerative process. Please correlate the finding with the neurological and radiological s tudies. Kenton Redding MD cc: [id number] TT: 07/18/2016 15:02:54 Confirmation # [id number] Dictation # [id number] reed
--- NOTE | 2016-07-18 15:48 | CP.PCM.CON ---
History of Present Illness - History of Present Illness History of Present Illness: I was asked to see patient by Dr. Roldan. Patient is a 89 year old female with a history of HTN who presents with with a fall. The patient was walking down the stairs, when she missed a step and fell. The patient hit her head and sustained a L patella fracture. The patient need operative repair. The patient denies chest pain or dyspnea. She ambulates and performs her activities of daily living. She denies claudication. Review of Systems - Constitutional Constitutional: absent: As Per HPI, Anorexia, Chills, Daytime Sleepiness, Excessive Sweating, Fatigue, Fever, Frequent Falls, Headache, Increased Appetite , Lethargy, Malaise, Night Sweats, Snoring, Sleep Apnea, Weight Gain, Weight Loss, Weakness, Other - EENT Eyes: absent: As Per HPI, Blind Spots, Blurred Vision, Change in Vision, Decreased Night Vision, Diplopia, Discharge, Dry Eye, Exophthalmos, Floaters, Irritation, Itchy Eyes, Loss of Peripheral Vision, Pain, Photophobia, Requires Corrective Lenses, Sees Flashes, Spots in Vision, Tunnel Vision, Other Visual Disturbances, Loss of Vision, Other Ears: absent: As Per HPI, Decreased Hearing, Ear Discharge, Ear Pain, Tinnitus, Abnormal Hearing, Disequilibrium, Dizziness, Other Nose/Mouth/Throat: absent: As Per HPI, Epistaxis, Nasal Congestion, Nasal Discharge, Nasal Obstruction, Nasal Trauma, Nose Pain, Post Nasal Drip, Sinus Pain, Sinus Pressure, Bleeding Gums, Change in Voice, Dental Pain, Dry Mouth, Dysphagia, Halitosis, Hoarsness, Lip Swelling, Mouth Lesions, Mouth Pain, Odynophagia, Sore Throat, Throat Swelling, Tongue Swelling, Facial Pain, Neck Pain, Neck Mass, Other - Cardiovascular Cardiovascular: absent: As Per HPI, Acrocyanosis, Chest Pain, Chest Pain at Rest , Chest Pain with Activity, Claudication, Diaphoresis, Dyspnea, Dyspnea on Exertion, Edema, Irregular Heart Rhythm, Pain Radiating to Arm/Neck/Jaw, Leg Edema, Leg Ulcers, Lightheadedness, Orthopnea, Palpitations, Paroxysmal Nocturnal Dyspnea, Pedal Edema, Radiating Pain, Rapid Heart Rate, Slow Heart Rate, Syncope, Other - Respiratory Respiratory: absent: As Per HPI, Cough, Dyspnea, Hemoptysis, Dyspnea on Exertion , Wheezing, Snoring, Stridor, Pain on Inspiration, Chest Congestion, Excessive Mucous Production, Change in Mucous Color, Pain with Coughing, Other - Gastrointestinal Gastrointestinal: absent: As Per HPI, Abdominal Pain, Belching, Bloating, Change in Bowel Habits, Change in Stool Character, Coffee Ground Emesis, Constipation, Cramping, Diarrhea, Dyspepsia, Dysphagia, Early Satiety, Excessive Flatus, Fecal Incontinence, Heartburn, Hematemesis, Hematochezia, Loose Stools, Melena, Nausea, Odynophagia, Temesmus, Vomiting, Other - Genitourinary Genitourinary: absent: As Per HPI, Change in Urinary Stream, Difficulty Urinating, Dysuria, Flank Pain, Hematuria, Pyuria, Nocturia, Urinary Incontinence, Urinary Frequency, Urinary Hesitance, Urinary Urgency, Voiding Freq/Small Amts, Freq UTI, Hx Renal/Bladder Calculi, Hx /Renal Surgery, Bladder Distension, Other - Musculoskeletal Musculoskeletal: Radiating Pain into Limb - Integumentary Integumentary: Unusual Bruising - Neurological Neurological: absent: As Per HPI, Abnormal Gait, Abnormal Hearing, Abnormal Movements, Abnormal Speech, Behavioral Changes, Burning Sensations, Confusion, Convulsions, Disequilibrium, Dizziness, Numbness, Focal Weakness, Frequent Falls , Headaches, Lack of Coordination, Loss of Vision, Memory Loss, Paresthesias, Radicular Pain, Restless Legs, Sensory Deficit, Syncope, Tingling, Tremor, Vertigo, Weakness, Other Visual Disturbances, Other - Psychiatric Psychiatric: absent: As Per HPI, Abnormal Sleep Pattern, Anhedonia, Anxiety, Auditory Hallucinations, Behavioral Changes, Change in Appetite, Change in Libido, Confusion, Depression, Difficulty Concentrating, Hallucinations, Homicidal Ideation, Hopelessness, Irritability, Memory Loss, Mood Swings, Panic Attacks, Paranoia, Suicidal Ideation, Visual Hallucinations, Tactile Hallucinations, Other - Endocrine Endocrine: absent: As Per HPI, Change in Body Appearance, Change in Libido, Cold Intolorance, Deepening of Voice, Excessive Sweating, Fatigue, Flushing, Heat Intolorance, Increase in Ring/Shoe/Hat Size, Palpitations, Polydipsia, Polyphagia, Polyuria, Other - Hematologic/Lymphatic Hematologic: absent: As Per HPI, Easy Bleeding, Easy Bruising, Lymphadenopathy, Other Past Patient History - Past Medical History & Family History Past Medical History?: Yes - Past Social History Smoking Status: Never Smoked Alcohol: None Drugs: Denies - CARDIAC Hx Cardiac Disorders: Yes Hx Hypertension: Yes - PULMONARY Hx Respiratory Disorders: No - NEUROLOGICAL Hx Neurological Disorder: No - HEENT Hx HEENT Problems: No - RENAL Hx Chronic Kidney Disease: No - ENDOCRINE/METABOLIC Hx Endocrine Disorders: Yes (not on meds.) Hx Diabetes Mellitus Type 2: Yes - HEMATOLOGICAL/ONCOLOGICAL Hx Blood Disorders: No - INTEGUMENTARY Hx Dermatological Problems: No - MUSCULOSKELETAL/RHEUMATOLOGICAL Hx Musculoskeletal Disorders: No - GASTROINTESTINAL Hx Gastrointestinal Disorders: No - GENITOURINARY/GYNECOLOGICAL Hx Genitourinary Disorders: No - PSYCHIATRIC Hx Psychophysiologic Disorder: No - SURGICAL HISTORY Hx Surgeries: No - ANESTHESIA Hx Anesthesia: Yes Hx Anesthesia Reactions: No Meds Allergies/Adverse Reactions: Allergies Allergy/AdvReac Type Severity Reaction Status Date / Time No Known Allergies Allergy Verified 07/16/16 10:30 - Medications Medications: Current Medications Acetaminophen (Tylenol 325mg Tab) 650 mg PO Q4 PRN PRN Reason: Pain, Mild (1-3) Last Admin: 07/17/16 06:30 Dose: 650 mg Amlodipine Besylate (Norvasc) 5 mg PO DAILY [facility] Last Admin: 07/18/16 10:59 Dose: 5 mg Carvedilol (Coreg) 12.5 mg PO DAILY [facility] Last Admin: 07/18/16 08:56 Dose: 12.5 mg Home Med (Cyclosporine [Restasis]) 1 drop EACHEYE Q12H [facility] Hydromorphone HCl (Dilaudid) 1 mg IVP Q4H PRN PRN Reason: Pain, moderate (4-7) Last Admin: 07/18/16 09:34 Dose: 1 mg Levetiracetam (Keppra) 500 mg PO BID [facility] Last Admin: 07/18/16 08:57 Dose: 500 mg Levothyroxine Sodium (Synthroid) 75 mcg PO DAILY@0630 [facility] Last Admin: 07/18/16 06:38 Dose: 75 mcg Pravastatin Sodium (Pravachol) 20 mg PO [facility] Last Admin: 07/17/16 21:35 Dose: 20 mg Physical Exam - Constitutional Appears: Non-toxic - Head Exam Head Exam: NORMAL INSPECTION - Eye Exam Additional comments: periorbital ecchymosis - ENT Exam ENT Exam: Mucous Membranes Moist - Neck Exam Neck exam: Positive for: Normal Inspection - Respiratory Exam Respiratory Exam: NORMAL BREATHING PATTERN - Cardiovascular Exam Cardiovascular Exam: REGULAR RHYTHM, Systolic Murmur - GI/Abdominal Exam GI & Abdominal Exam: Normal Bowel Sounds - Rectal Exam Rectal Exam: Deferred - Extremities Exam Extremities exam: Positive for: full ROM - Back Exam Back exam: NORMAL INSPECTION - Neurological Exam Neurological exam: Alert, Oriented x3 - Psychiatric Exam Psychiatric exam: Normal Affect - Skin Skin Exam: Normal Color Results - Vital Signs Recent Vital Signs: Last Vital Signs Temp 97 F L 07/18/16 12:00 Pulse 74 07/18/16 12:00 Resp 18 07/18/16 12:00 BP 123/69 07/18/16 12:00 Pulse Ox 96 07/18/16 12:00 - Labs Result Diagrams: 07/17/16 06:45 07/17/16 06:45 Labs: Laboratory Results - last 24 hr 07/16/16 07/17/16 07/17/16 20:30 15:53 21:24 POC Glucose (mg/dL) 192 H 134 H Folate > 20.0 07/18/16 07/18/16 05:18 11:26 POC Glucose (mg/dL) 181 H 137 H Folate - EKG Data EKG Interpreted by: Myself EKG shows normal: Sinus rhythm Assessment & Plan (1) HTN (hypertension) Assessment and Plan: well controlled Status: Acute (2) Patella fracture Assessment and Plan: patient is in need of surgery. discussed with Dr. Bird. The patient has a physical exam and echocardiogram consistent with moderately severe aortic valve stenosis. She has no angina or heart failure. The patient does not imminentlyd /c need aortic valve replacement. I recommend proceeding to OR with the following recommendation. * d/c amlodipine. * maintain MAP 75-80 * avoid blood loss and intravascular volume depletion * maintain Coreg I have discussed the echo findings and aortic valve stenosis with the patient and her son. Status: Acute (3) Aortic valve stenosis Status: Acute
--- NOTE | 2016-07-18 17:13 | PN ---
DATE: 07/18/2016 NEUROLOGICAL PROBLEM: Left hemiparesis secondary to right subcortical bleed. PHYSICAL EXAMINATION: VITAL SIGNS: Blood pressure 123/60, mean arterial pressure 87, respiratory rate 16, temperature afeb rile. NEUROLOGIC: The patient is awake, alert, oriented to person, place, and time. Denies headache. Lef t hemiparesis is mild. From the fall, she fractured her patella which is scheduled for orthopedic stauffer rgery tomorrow. The patient's condition also discussed with her son. RECOMMENDATIONS: Continue the present management. No antiplatelets for next 4-6 weeks. Kenton Redding MD cc: [id number] TT: 07/18/2016 17:12:31 Confirmation # [id number] Dictation # [id number] tn
[2016-07-18] MEDS: Patient's Own Med (Cyclosporine [Restasis] 1 DROP) EACHEYE SCH ×2 (21:41→21:42)
[2016-07-18] MEDS: Pravastatin Sodium 20 MG TAB PO SCH (21:43)
[2016-07-19] MEDS: Levothyroxine 75 MCG TAB PO SCH (06:40)
[2016-07-19] MEDS ORDERED: Lidocaine 1% Inj (20ml) ONE (07:16)
[2016-07-19] MEDS ORDERED: Bupivacaine 0.5% Inj(30mL) ONE (07:16)
[2016-07-19] MEDS ORDERED: Bacitracin Ointment 30 GM TUBE ONE (07:17)
[2016-07-19] MEDS ORDERED: Midazolam 2 MG/2 ML VIAL ONE (07:19)
[2016-07-19] MEDS ORDERED: Propofol 10 mg/ml Inj (20 ML) ONE (07:19)
[2016-07-19] MEDS ORDERED: Lidocaine Hydrochloride 5 ML INJ ONE (07:20)
[2016-07-19] MEDS ORDERED: Neostigmine Methylsulfate 2 MG/2 ML ML IV ONE (07:20)
[2016-07-19] MEDS ORDERED: Rocuronium 10 mg/ml (5 ml) ONE (07:20)
[2016-07-19] MEDS ORDERED: Lidocaine 4% (Laryng-O-Jet) Kit MM ONE (07:20)
[2016-07-19] MEDS ORDERED: Succinylcholine 200 mg/10 ml Inj IV ONE (07:20)
[2016-07-19] MEDS ORDERED: Etomidate 20 mg/10ml Inj IV ONE (07:25)
[2016-07-19] MEDS ORDERED: Ropivacaine 0.5% 30ML IV ONE (07:52)
--- NOTE | 2016-07-19 09:21 | PQF GENQUE ---
This form is a permanent part of the medical record 07/19/16 Dr Roldan, Documentation Clarification: Further documentation of Intraparenchymal hemorrhage of brain : Traumatic versus Non Traumatic Clarification of your documentation is requested to better reflect the severity of illness and intensity of treatment of your patient. PHYSICIAN'S RESPONSE Based on your medical judgment of the clinical indicators outlined above please clarify the following: [] Practitioner response [] If unable to determine, please check the box, sign and date. Present On Admission (POA) Indicator: [] Present at the time of admission [] Not present at the time of admission [] Clinically Undetermined In responding to this query, please exercise your independent professional judgment. The fact that a question is asked does not imply that any particular answer is desired or expected. Thank you for your clarification on this documentation. If you have any questions please call:[phone] * Thank you, Malika Arvizu RN CDMP MTDD
[2016-07-19] MEDS ORDERED: Sodium Chloride 0.9% 1,000 ML IV ONE (10:05)
--- NOTE | 2016-07-19 10:22 | PCM.SURG1 ---
Surgeon's Initial Post Op Note - Surgeon's Notes Surgeon: Pelon Material Requisitioner: ÁLVARO Pelaez/ Anesthesia Administered By: DR Joe Pre-Operative Diagnosis: Displaced comminuted L pateela fx. rupture medial and lateral retinaculum Operative Findings: as above Post-Operative Diagnosis: as above Operation Performed: ORIF displaced patella fracture. Primary repair medial and lateral patella reticula Specimen/Specimens Removed: fx callous. patella reticula Estimated Blood Loss: EBL {In ML}: 10 Blood Products Given: N/A Drains Used: No Drains Post-Op Condition: Good Date of Surgery/Procedure: 07/19/16 Time of Surgery/Procedure: 09:15 (time in room/anaesthesia induction time 8:15/ end time-950)
--- NOTE | 2016-07-19 10:23 | PCM.ANESB3 ---
Femoral Nerve Block - Femoral Nerve Block Date of Procedure: 07/19/16 Anesthesiologist: Dr. Joe Pre-Procedure Diagnosis: Left patellar fracture Post-Procedure Diagnosis: Left patellar fracture Procedure Performed: Femoral Nerve Block Left - Procedure Femoral Nerve Block: The procedure was explained to the patient that it is for the post-operative pain management. Consent was obtained after a thorough discussion with the patient regarding the benefits and possible complications of local anesthetic block of the femoral nerve at the inguinal crease area. The patient was brought to the operating room and standard monitors were applied. Time-out was held with the circulating nurse to confirm the correct surgery and the appropriate block. After applying oxygen by mask and administering general anesthesia, patient placed in supine position with fully extended lower extremities and the left groin exposed. The femoral artery was then carefully palpated. The ultrasound transducer was then applied to this area in the transverse plane and the femoral nerve was visualized lateral to the femoral artery and underneath the fascia iliaca. After thorough identification, the inguinal crease area was prepped with Chloraprep solution. At this point, a #21 gauge Stimuplex 4-inch needle was inserted immediately lateral to the femoral artery pulse at the inguinal crease and advanced perpendicularly. The needle was inserted to the ultrasound transducer in-plane towards the femoral nerve in a [id number] direction. Needle advancement was performed carefully under direct ultrasound visualization. Nerve stimulator was used and twitch of the quadriceps muscle was obtained at current of 0.3MA. After negative aspiration, 5cc of 0.5% ropivacaine was injected and this was followed with 15cc of 0.5% ropivacaine. Under ultrasound guidance the local anesthetics were observed spreading below fascia iliaca and around the femoral nerve. The needle was removed intact and sterile dressing was applied. The patient had stable vital signs in no apparent distress. The patient tolerated the femoral nerve block well with stable vital signs and was prepared for subsequent surgery.
--- NOTE | 2016-07-19 13:06 | RAD ---
PROCEDURE: Intraoperative fluoroscopy HISTORY: ORIF of left patellar fracture COMPARISON: Not available TECHNIQUE: Intraoperative fluoroscopy was provided. Total time of fluoroscopy was 6.4 seconds. FINDINGS: Seven fluoroscopic spot films are submitted demonstrating the patellar fixation. Films are on file for review. IMPRESSION: Fluoroscopy provided.
--- NOTE | 2016-07-19 15:05 | CP.PCM.PN ---
Subjective - Date & Time of Evaluation Date of Evaluation: 07/19/16 - Subjective Subjective: F/U Intraparenchymal hemorrhage of Brain. Pt awake, alert Ox3, had surgery L Patella today, c/o of pain in L knee, R shoulder. Objective - Vital Signs/Intake and Output Vital Signs (last 24 hours): Temp Pulse Resp BP Pulse Ox 99.2 F 74 18 113/52 L 97 07/19/16 12:38 07/19/16 12:38 07/19/16 12:38 07/19/16 12:38 07/19/16 12:38 Intake and Output: 07/19/16 07/19/16 06:59 18:59 Intake Total 300 Balance 300 - Medications Medications: Current Medications Acetaminophen (Tylenol 325mg Tab) 650 mg PO Q4 PRN PRN Reason: Pain, Mild (1-3) Last Admin: 07/17/16 06:30 Dose: 650 mg Carvedilol (Coreg) 12.5 mg PO DAILY [facility] Last Admin: 07/18/16 08:56 Dose: 12.5 mg Home Med (Cyclosporine [Restasis]) 1 drop EACHEYE Q12H [facility] Last Admin: 07/18/16 21:42 Dose: 1 drop Hydromorphone HCl (Dilaudid) 1 mg IVP Q4H PRN PRN Reason: Pain, moderate (4-7) Last Admin: 07/18/16 21:51 Dose: 1 mg Lactated Ringer's (Lactated Ringer's) 1,000 mls @ 100 mls/hr IV .Q10H [facility] Cefazolin Sodium 1 gm/ Sodium (Chloride) 100 mls @ 100 mls/hr IVPB Q8 [facility] Stop: 07/20/16 01:59 Levetiracetam (Keppra) 500 mg PO BID [facility] Last Admin: 07/18/16 17:11 Dose: 500 mg Levothyroxine Sodium (Synthroid) 75 mcg PO DAILY@0630 [facility] Last Admin: 07/19/16 06:40 Dose: 75 mcg Pravastatin Sodium (Pravachol) 20 mg PO HS [facility] Last Admin: 07/18/16 21:43 Dose: 20 mg - Labs Labs: 07/17/16 06:45 07/17/16 06:45 PT 11.4 SECONDS (9.6-11.2) H 07/17/16 06:45 INR 1.10 (0.92-1.08) H 07/17/16 06:45 APTT 26.3 SECONDS (23.3-32.5) 07/17/16 06:45 - Constitutional Appears: No Acute Distress - Head Exam Additional comments: R forehead ecchymosis - Eye Exam Eye Exam: EOMI, PERRL - ENT Exam ENT Exam: Normal Oropharynx - Neck Exam Neck Exam: Normal Inspection - Respiratory Exam Respiratory Exam: NORMAL BREATHING PATTERN - Cardiovascular Exam Cardiovascular Exam: REGULAR RHYTHM - GI/Abdominal Exam GI & Abdominal Exam: Soft, Normal Bowel Sounds - Extremities Exam Extremities Exam: Tenderness (R shoulder with stricted ROM.Tenderness L ebow with laceration and decreased ROM.) Additional comments: L knee dressing in place, dry, immobilized on. - Back Exam Back Exam: NORMAL INSPECTION - Neurological Exam Neurological Exam: Alert, Oriented x3 Additional comments: Mild left hemiparesia - Psychiatric Exam Psychiatric exam: Normal Affect, Normal Mood - Skin Skin Exam: Warm Assessment and Plan (1) Intraparenchymal hemorrhage of brain Status: Acute (2) Patella fracture Status: Acute (3) Shoulder pain Status: Acute (4) Laceration of right elbow Status: Acute (5) HTN (hypertension) Status: Acute (6) High cholesterol Status: Chronic (7) Hypothyroidism Status: Chronic (8) Diabetes mellitus Status: Chronic (9) S/P ORIF (open reduction internal fixation) fracture Assessment & Plan: Patella Fx. Status: Acute (10) Contusion of right shoulder Status: Acute - Assessment and Plan (Free Text) Plan: Continue current Tx.
[2016-07-19] MEDS: Patient's Own Med (Cyclosporine [Restasis] 1 DROP) EACHEYE SCH ×4 (16:47→22:12)
[2016-07-19] MEDS: ceFAZolin 1 GM in Sodium Chloride 0.9% 100 ML IVPB SCH (17:40)
[2016-07-19] MEDS: Lactated Ringer's 1,000 ML IV SCH ×3 (17:47→21:47)
--- NOTE | 2016-07-19 18:09 | CARD ---
APPROVED REPORT EXAM: Two-dimensional and M-mode echocardiogram with Doppler and color Doppler. Other Information Quality : AverageRhythm : NSR Technically limited study due to Fractured Patellar. INDICATION LV Function:SystolicDiastolic 2D DIMENSIONS IVSd0.79 (0.7-1.1cm)LVDd3.87 (3.9-5.9cm) LVOT Diameter2.05 (1.8-2.4cm)PWd0.75 (0.7-1.1cm) IVSs0.99 (0.8-1.2cm)LVDs2.68 (2.5-4.0cm) FS (%) 30.7 %PWs0.97 (0.8-1.2cm) M-Mode DIMENSIONS Left Atrium (MM)4.47 (2.5-4.0cm)IVSd0.76 (0.7-1.1cm) Aortic Root3.00 (2.2-3.7cm)LVDd5.09 (4.0-5.6cm) Aortic Cusp Exc.1.15 (1.5-2.0cm)PWd0.76 (0.7-1.1cm) IVSs1.47 cmFS (%) 55 % LVDs2.26 (2.0-3.8cm)PWs1.53 cm Aortic Valve AoV Peak Xleyfgdh089.4cm/sAoV VTI58.9cmAO Peak GR.33mmHg LVOT Peak Tqygkhpw98.6cm/sLVOT VTI19.46cmAO Mean GR.19mmHg CRISTHIAN (VMAX)0.11tl5UEH (VTI)0.65cm2 Mitral Valve MV E Dpcbixsg34.2cm/sMV DECEL MKFO937spOW A Njczhdzz306.1cm/s MV YBF50otP/A ratio0.7MVA (PHT)3.52cm2 TDI Lateral E' Peak V8.88cm/sMedial E' Peak V8.15cm/sE/Lateral E'7.9 E/Medial E'8.6 Tricuspid Valve TR Peak Itrlbjnt248lv/sRAP DLYUOSQV78wwVjMB Peak Gr.26mmHg TGGP87fpAk LEFT VENTRICLE The left ventricle is normal size. There is normal left ventricular wall thickness. The left ventricular function is normal. The left ventricular ejection fraction is 60-65% There is normal LV segmental wall motion. Transmitral Doppler flow pattern is Grade I-abnormal relaxation pattern. No left ventricle thrombus noted on this study. There is no ventricular septal defect visualized. There is no left ventricular aneurysm. There is no mass noted in the left ventricle. RIGHT VENTRICLE The right ventricle is normal size. There is normal right ventricular wall thickness. The right ventricular systolic function is normal. ATRIA The left atrium is mildly dilated. The right atrium size is normal. The interatrial septum is intact with no evidence for an atrial septal defect. AORTIC VALVE The aortic valve is moderately calcified. No aortic regurgitation is present. There is mild valvular aortic stenosis. Calculated aortic valve area is 1.0 cm2 with maximum pressure gradient of 29 mmHg and mean pressure gradient of mmHg. There is no aortic valvular vegetation. MITRAL VALVE The mitral valve is normal in structure and function. There is no evidence of mitral valve prolapse. There is no mitral valve stenosis. There is no mitral valve regurgitation noted. TRICUSPID VALVE The tricuspid valve is normal in structure and function. There is mild tricuspid regurgitation. Right ventricular systolic pressure is estimated at less than 30 mmHg. There is no tricuspid valve prolapse or vegetation. There is no tricuspid valve stenosis. PULMONIC VALVE The pulmonary valve is normal in structure and function. There is no pulmonic valvular regurgitation. There is no pulmonic valvular stenosis. GREAT VESSELS The aortic root is normal in size. The ascending aorta is normal in size. The IVC is normal in size and collapses >50% with inspiration. PERICARDIAL EFFUSION The pericardium appears normal. There is no pleural effusion. <Conclusion> Normal LV Systolic Function LVEF 60-65% Mild Aortic Stenosis CRISTHIAN 1.0 cm2 Impaired Diastolic Relaxation
--- NOTE | 2016-07-19 18:34 | RAD ---
PROCEDURE: Left Knee Radiographs. HISTORY: Postop COMPARISON: Preoperative study 07/16/2016. FINDINGS: BONES: Anatomic alignment of fracture fragments of the left patella. Three partially fenestrated screws appear to be in satisfactory position and alignment. JOINTS: Normal. No osteoarthritis. JOINT EFFUSION: None. OTHER FINDINGS: Expected postoperative soft tissue swelling. IMPRESSION: Satisfactory postoperative status.
[2016-07-19] MEDS: Pravastatin Sodium 20 MG TAB PO SCH (21:36)
[2016-07-20] MEDS: ceFAZolin 1 GM in Sodium Chloride 0.9% 100 ML IVPB SCH (00:21)
[2016-07-20 05:30] LABS: BLOOD UREA NITROGEN 15 mg/dl (7-17); CALCIUM 8.3 mg/dL (8.4-10.2); CARBON DIOXIDE 25 mmol/L (22-30); CHLORIDE 99 mmol/L (98-107); GFR AFRICAN-AMERICAN > 60; GLUCOSE,RANDOM 140 mg/dL (65-105); POTASSIUM 3.8 MMOL/L (3.6-5.0); SODIUM 131 mmol/l (132-148)
[2016-07-20 05:36] LABS: HEMATOCRIT 29.1 % (34.0-47.0); MEAN CELL VOLUME 86.1 fl (81.0-99.0); MEAN CORPUSCULAR HEMOGLOBIN 29.2 pg (27.0-31.0); RED CELL DISTRIBUTION WIDTH 13.6 % (11.5-14.5)
[2016-07-20] MEDS: Levothyroxine 75 MCG TAB PO SCH (06:16)
[2016-07-20] MEDS: Lactated Ringer's 1,000 ML IV SCH (06:20)
--- NOTE | 2016-07-20 08:35 | PQF GENQUE ---
This form is a permanent part of the medical record 07/20/16 , Documentation Clarification: Further documentation of Intraparenchymal hemorrhage of brain : Traumatic versus Non Traumatic Please clarify in your notes. Clarification of your documentation is requested to better reflect the severity of illness and intensity of treatment of your patient. PHYSICIAN'S RESPONSE Based on your medical judgment of the clinical indicators outlined above please clarify the following: [] Practitioner response [] If unable to determine, please check the box, sign and date. Present On Admission (POA) Indicator: [] Present at the time of admission [] Not present at the time of admission [] Clinically Undetermined In responding to this query, please exercise your independent professional judgment. The fact that a question is asked does not imply that any particular answer is desired or expected. Thank you for your clarification on this documentation. If you have any questions please call:[phone] * Thank you, Malika Arvizu RN CDNEW [facility]
--- NOTE | 2016-07-20 08:39 | CP.PCM.PN ---
Subjective - Date & Time of Evaluation Date of Evaluation: 07/20/16 Time of Evaluation: 08:35 - Subjective Subjective: S- pt markedly improved/resting comfortabl;y/ minimal post op discomfort Objective - Vital Signs/Intake and Output Vital Signs (last 24 hours): Temp Pulse Resp BP Pulse Ox 98.3 F 78 20 110/57 L 96 07/20/16 08:14 07/20/16 08:14 07/20/16 08:14 07/20/16 08:14 07/20/16 08:14 - Medications Medications: Current Medications Acetaminophen (Tylenol 325mg Tab) 650 mg PO Q4 PRN PRN Reason: Pain, Mild (1-3) Last Admin: 07/17/16 06:30 Dose: 650 mg Carvedilol (Coreg) 12.5 mg PO DAILY [facility] Last Admin: 07/19/16 16:53 Dose: 12.5 mg Home Med (Cyclosporine [Restasis]) 1 drop EACHEYE Q12H [facility] Last Admin: 07/19/16 22:12 Dose: Not Given Hydromorphone HCl (Dilaudid) 1 mg IVP Q4H PRN PRN Reason: Pain, moderate (4-7) Last Admin: 07/20/16 04:37 Dose: 1 mg Lactated Ringer's (Lactated Ringer's) 1,000 mls @ 100 mls/hr IV .Q10H [facility] Last Admin: 07/20/16 06:20 Dose: 100 mls/hr Levetiracetam (Keppra) 500 mg PO BID [facility] Last Admin: 07/19/16 17:47 Dose: 500 mg Levothyroxine Sodium (Synthroid) 75 mcg PO DAILY@0630 [facility] Last Admin: 07/20/16 06:16 Dose: 75 mcg Pravastatin Sodium (Pravachol) 20 mg PO HS [facility] Last Admin: 07/19/16 21:36 Dose: 20 mg - Labs Labs: 07/20/16 04:40 07/20/16 04:40 PT 11.4 SECONDS (9.6-11.2) H 07/17/16 06:45 INR 1.10 (0.92-1.08) H 07/17/16 06:45 APTT 26.3 SECONDS (23.3-32.5) 07/17/16 06:45 - Additional Findings Additional findings: Objective systemic- essentially wnl please refer to cardiology and internal med notes Musculoskeltal stance/gait- deferred L knee immobilizer intacty N/V intactNo gross defcits post op Xray- reveals excellent position of construct Assessment and Plan - Assessment and Plan (Free Text) Assessment: A- s/p ORIF L patella fx P- orthopedicallys stable pt still with rupture roTATOR CUFF, MAY HAVE TO be addressed in the future imp: orthopedically stable
[2016-07-20] MEDS: Patient's Own Med (Cyclosporine [Restasis] 1 DROP) EACHEYE SCH ×2 (09:08→20:45)
--- NOTE | 2016-07-20 11:35 | OP ---
PROCEDURE DATE: 07/19/2016 PREOPERATIVE DIAGNOSES: 1. Displaced comminuted left patellar fracture. 2. 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 POSTOPERATIVE DIAGNOSES: 1. Displaced comminuted left patellar fracture. 2. 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 OPERATIVE FINDINGS: As above with fracture callus. 1. Displaced comminuted left patellar fracture. 2. Rupture of medial and lateral retinacula. PROCEDURES: 1. ORIF displaced comminuted patellar fracture. 2. Repair of medial and lateral retinacula of the patella. 3. Application of Adna Patton compression dressing and knee immobilizer. SURGEON: Mat Bird MD BUSINESS INTELLIGENCE ADMINISTRATOR: Reanna Herring, Certified Registered Nursing Cab Station Attendant. SECOND PHARMACEUTICAL COMPOUNDING SUPERVISOR: Pedrito Haji. BLOOD LOSS: Approximately 10 mL. No blood products. DRAINS: No drains. POSTOPERATIVE CONDITION: Stable. OPERATIVE INDICATION: The patient is an 89-year-old woman who had sustained a fall on ice sustaining injury to the right shoulder and left knee. The patient also had injury to the head which has been cleared neurologically in terms of a possible parenchymal thalamic bleed. The patient is cleared danny rologically: The patient is cleared medically and the cardiologic situation is discussed with Dr. Zeenat moreno. The patient is cleared and taken to surgery. DESCRIPTION OF PROCEDURE: After having obtained informed consent from the patient through the miko jimenez competent district engineer and from her son, Navarro, after having identified side, site and procedure an d a critical pause/timeout, after the satisfactory induction of general endotracheal anesthesia by Dr Jhonny Joe, the patient identified as Emy Yolanda in the supine position with all bony prominences wel l padded, the left lower extremity is prepped and free draped in the usual fashion for lower extremit y surgery. It should be noted that am A line in accord with the recommendations of cardiology was pl aced to keep the blood pressure within a certain range. After having identified side, site and proce dure and a critical pause/timeout, after the satisfactory induction of the anesthetic, the patient id entified as Emy Arun in the supine position with all bony prominences well padded, the left l ower extremity is prepped and free draped in the usual fashion for lower extremity surgery. The tour niquet had been applied. It is inflated now after sterilely prepping and draping and after exsanguin ation of the limb using a 6 inch Esmarch bandage. The tourniquet which had been applied is inflated to 350 mmHg. A 6-inch straight midline approach is made to the knee. The skin incision is carried d own to the level of the prepatellar bursa. Great care is taken to keep this flap deep because the bl ood supply to the patella comes in in the area of the prepatellar bursa in a ____ of vessels. Stay s utures are applied medially and laterally. The medial and lateral retinacula are found to be rupture d. At this point in time, using a combination of a hand rongeur and with flexion and extension, the joint is evacuated of clot and callus. Using the Pulsavac, the wound is thoroughly irrigated. The f racture site is irrigated and debrided of comminution and again of healing callus. At this point in time, using the bump and the knee at approximately 40 degrees of flexion, using AO large fragment tow el clip bone holding clamps, the patella is reduced. Under the surgeon's direction, the fluoroscope is positioned. Video images are generated. Therapeutic decisions are made there from. At this poin t, the fracture having been satisfactorily reduced, the cannulated locking screws are employed. At t his point in time, the plan is for 3 locking screws. The guidewires are placed, first centrally. Dr illing is accomplished, sounding with the depth gauge and the appropriate size cannulated screw is pl aced. The same procedure is performed for the medial facet and for the lateral aspect of the patella as well. Please refer to the video photographs. Under the surgeon's direction, the fluoroscope is positioned. Video images are generated. Therapeutic decisions are made there from. The position is found to be acceptable. The wound is thoroughly irrigated. The medial and lateral retinacula are n ow repaired using interrupted FiberWire sutures with the knee in flexion. The patella is thus realig beto, so in essence, a proximal patellar realignment is accomplished with repair of the medial and lat eral retinacula. The wound is thoroughly irrigated. Position is found to be excellent. Hemostasis controlled with the Aquamantys. Closure is in layers with 0 Quill, Vicryl, and brandt for skin. Ro leanne Patton compression dressing and knee immobilizer are applied. It should be noted that the certified nursing library clerical assistant is essential for the completion of this operative goal during the course of the procedure, both exposure and completion of the operative ope n reduction. OPERATIVE PROCEDURES: 1. Open reduction internal fixation, displaced patellar fracture. 2. Primary repair of medial and lateral patellar retinacula. 3. Application of Adan Patton compression dressing and knee immobilizer. Mat Bird MD cc: [id number] TT: 07/20/2016 11:35:03 tn
[2016-07-20] MEDS: Oxycodone/Acetaminophen 5/325 mg Tab PO PRN ×2 (11:44→21:52)
--- NOTE | 2016-07-20 17:15 | CP.PCM.PN ---
Subjective - Date & Time of Evaluation Date of Evaluation: 07/20/16 Time of Evaluation: 16:30 - Subjective Subjective: patient has no current chest pain or dyspnea. sitting in chair. s/p surgery. Objective - Vital Signs/Intake and Output Vital Signs (last 24 hours): Temp Pulse Resp BP Pulse Ox 98.0 F 67 20 108/59 L 96 07/20/16 15:44 07/20/16 15:44 07/20/16 15:44 07/20/16 15:44 07/20/16 15:44 - Medications Medications: Current Medications Acetaminophen (Tylenol 325mg Tab) 650 mg PO Q4 PRN PRN Reason: Pain, Mild (1-3) Last Admin: 07/17/16 06:30 Dose: 650 mg Carvedilol (Coreg) 12.5 mg PO DAILY [facility] Last Admin: 07/20/16 09:09 Dose: 12.5 mg Docusate Sodium (Colace) 100 mg PO BID [facility] Last Admin: 07/20/16 16:32 Dose: 100 mg Home Med (Cyclosporine [Restasis]) 1 drop EACHEYE Q12H [facility] Last Admin: 07/20/16 09:08 Dose: 1 drop Hydromorphone HCl (Dilaudid) 1 mg IVP Q4H PRN PRN Reason: Pain, severe (8-10) Lactated Ringer's (Lactated Ringer's) 1,000 mls @ 100 mls/hr IV .Q10H [facility] Last Admin: 07/20/16 06:20 Dose: 100 mls/hr Levetiracetam (Keppra) 500 mg PO BID [facility] Last Admin: 07/20/16 16:29 Dose: 500 mg Levothyroxine Sodium (Synthroid) 75 mcg PO DAILY@0630 [facility] Last Admin: 07/20/16 06:16 Dose: 75 mcg Oxycodone/Acetaminophen (Percocet 5/325 Mg Tab) 1 tab PO Q6 PRN PRN Reason: Pain, moderate (4-7) Stop: 07/23/16 11:03 Last Admin: 07/20/16 11:44 Dose: 1 tab Pravastatin Sodium (Pravachol) 20 mg PO HS [facility] Last Admin: 07/19/16 21:36 Dose: 20 mg - Labs Labs: 07/20/16 04:40 07/20/16 04:40 PT 11.4 SECONDS (9.6-11.2) H 07/17/16 06:45 INR 1.10 (0.92-1.08) H 07/17/16 06:45 APTT 26.3 SECONDS (23.3-32.5) 07/17/16 06:45 - Constitutional Appears: Non-toxic - Head Exam Head Exam: NORMAL INSPECTION - Eye Exam Eye Exam: Normal appearance - ENT Exam ENT Exam: Mucous Membranes Moist - Neck Exam Neck Exam: Full ROM - Respiratory Exam Respiratory Exam: NORMAL BREATHING PATTERN - Cardiovascular Exam Cardiovascular Exam: REGULAR RHYTHM, Murmur - GI/Abdominal Exam GI & Abdominal Exam: Normal Bowel Sounds - Rectal Exam Rectal Exam: Deferred - Extremities Exam Extremities Exam: absent: Pedal Edema - Back Exam Back Exam: NORMAL INSPECTION - Neurological Exam Neurological Exam: Alert - Psychiatric Exam Psychiatric exam: Normal Affect - Skin Skin Exam: Normal Color Assessment and Plan (1) HTN (hypertension) Assessment & Plan: well controlled Status: Acute (2) Patella fracture Assessment & Plan: s/p successful surgery. rehab Status: Acute (3) Aortic valve stenosis Assessment & Plan: not in CHF. outpatient therapy. Status: Acute
--- NOTE | 2016-07-20 17:57 | CP.PCM.PN ---
Objective - Vital Signs/Intake and Output Vital Signs (last 24 hours): Temp Pulse Resp BP Pulse Ox 98.0 F 67 20 108/59 L 96 07/20/16 15:44 07/20/16 15:44 07/20/16 15:44 07/20/16 15:44 07/20/16 15:44 - Medications Medications: Current Medications Acetaminophen (Tylenol 325mg Tab) 650 mg PO Q4 PRN PRN Reason: Pain, Mild (1-3) Last Admin: 07/17/16 06:30 Dose: 650 mg Carvedilol (Coreg) 12.5 mg PO DAILY [facility] Last Admin: 07/20/16 09:09 Dose: 12.5 mg Docusate Sodium (Colace) 100 mg PO BID [facility] Last Admin: 07/20/16 16:32 Dose: 100 mg Home Med (Cyclosporine [Restasis]) 1 drop EACHEYE Q12H [facility] Last Admin: 07/20/16 09:08 Dose: 1 drop Hydromorphone HCl (Dilaudid) 1 mg IVP Q4H PRN PRN Reason: Pain, severe (8-10) Lactated Ringer's (Lactated Ringer's) 1,000 mls @ 100 mls/hr IV .Q10H [facility] Last Admin: 07/20/16 06:20 Dose: 100 mls/hr Levetiracetam (Keppra) 500 mg PO BID [facility] Last Admin: 07/20/16 16:29 Dose: 500 mg Levothyroxine Sodium (Synthroid) 75 mcg PO DAILY@0630 [facility] Last Admin: 07/20/16 06:16 Dose: 75 mcg Oxycodone/Acetaminophen (Percocet 5/325 Mg Tab) 1 tab PO Q6 PRN PRN Reason: Pain, moderate (4-7) Stop: 07/23/16 11:03 Last Admin: 07/20/16 11:44 Dose: 1 tab Pravastatin Sodium (Pravachol) 20 mg PO HS [facility] Last Admin: 07/19/16 21:36 Dose: 20 mg - Labs Labs: 07/20/16 04:40 07/20/16 04:40 PT 11.4 SECONDS (9.6-11.2) H 07/17/16 06:45 INR 1.10 (0.92-1.08) H 07/17/16 06:45 APTT 26.3 SECONDS (23.3-32.5) 07/17/16 06:45 Assessment and Plan (1) Intraparenchymal hemorrhage of brain Status: Acute (2) Patella fracture Status: Acute (3) Shoulder pain Status: Acute (4) Laceration of right elbow Status: Acute (5) HTN (hypertension) Status: Acute (6) High cholesterol Status: Chronic (7) Hypothyroidism Status: Chronic (8) Diabetes mellitus Status: Chronic
[2016-07-20] MEDS: Pravastatin Sodium 20 MG TAB PO SCH (21:49)
[2016-07-21] MEDS: Lactated Ringer's 1,000 ML IV SCH (03:36)
[2016-07-21] MEDS: Patient's Own Med (Cyclosporine [Restasis] 1 DROP) EACHEYE SCH ×4 (03:39→10:54)
[2016-07-21] MEDS: Levothyroxine 75 MCG TAB PO SCH (05:38)
[2016-07-21 13:03] VITALS: BP 134/65; PULSE 89; RESP 18; TEMP 98.4; O2SAT 98
--- NOTE | 2016-07-23 17:16 | CARD ---
APPROVED REPORT EKG Measurement Heart [id number] [id number] <Conclusion> Normal sinus rhythm Nonspecific T wave abnormality Abnormal ECG
--- NOTE | 2016-07-23 17:25 | CARD ---
APPROVED REPORT EKG Measurement Heart [id number] <Conclusion> Normal sinus rhythm Nonspecific ST and T wave abnormality Prolonged QT Abnormal ECG
== END 2016-07-21 15:20 | DRG 982 ==
LOC: H.ER 10:06 → H.ERHOLD 15:57 → H.TEL 19:06
PROVIDERS: ADMIT Internal Medicine Pulmonary Disease; ATTEND Internal Medicine Pulmonary Disease
PROC: 3E0T3CZ (ICD-10-PCS; 2016-07-19)
PROC: 3E0T33Z Introduction of Anti-inflammatory into Peripheral Nerves and Plexi, Percutaneous Approach (ICD-10-PCS; 2016-07-19)
PROC: 0QSF04Z Reposition Left Patella with Internal Fixation Device, Open Approach (ICD-10-PCS; principal; 2016-07-19 12:00)
PROC: 0LUR0JZ Supplement Left Knee Tendon with Synthetic Substitute, Open Approach (ICD-10-PCS; 2016-07-19 12:00)
DX: S06.360A Traumatic hemorrhage of cerebrum, unspecified, without loss of consciousness, initial encounter (principal); G81.94 Hemiplegia, unspecified affecting left nondominant side; E11.9 Type 2 diabetes mellitus without complications; S82.042A Displaced comminuted fracture of left patella, initial encounter for closed fracture; S01.01XA Laceration without foreign body of scalp, initial encounter; I10 Essential (primary) hypertension; S76.112A Strain of left quadriceps muscle, fascia and tendon, initial encounter; S51.011A Laceration without foreign body of right elbow, initial encounter; S80.02XA Contusion of left knee, initial encounter; S40.011A Contusion of right shoulder, initial encounter; I35.0 Nonrheumatic aortic (valve) stenosis; E03.9 Hypothyroidism, unspecified; E78.00 Pure hypercholesterolemia, unspecified; W10.8XXA Fall (on) (from) other stairs and steps, initial encounter; Y93.9 Activity, unspecified; Y92.9 Unspecified place or not applicable